=== PATIENT | male | born 1950 | race Caucasian/White ===

== ENCOUNTER 2020-07-02 09:24 | Day surgery (SDC) | payer MEDICARE, BC, OTHER ==
[~2020-07-02 09:24] MED LIST: Lactated Ringers 1,000 ML IV SCH
[2020-07-02] MEDS ORDERED: fentaNYL 100 MCG/2 ML SDV ONE (10:14)
[2020-07-02] MEDS ORDERED: Propofol 200 MG/20 ML SDV ONE ×3 (10:14→11:54)
[2020-07-02 12:27] VITALS: BP 131/73; PULSE 55
--- NOTE | 2020-07-03 19:06 | OR ---
DATE OF SURGERY: 07/02/2020. REFERRING PROVIDER: Tatiana Altamirano DO PREOPERATIVE DIAGNOSES: Screening colonoscopy. The patient's last colonoscopy was 01/2010. No known family history of colon cancer. POSTOPERATIVE DIAGNOSES: 1. 2 mm polyp at 80 cm removed with cold forceps. 2. Mild sigmoid diverticulosis with prominent kink noted between 20 and 30 cm from the anal verge. This required moving the patient onto his back and then on the right side to facilitate passage. Colon was fairly straight after that. 3. Mild hemorrhoids, not acutely inflamed. PROCEDURE: Colonoscopy with polypectomy x1 using cold forceps. SURGEON: Ang Brice M.D. ANESTHESIA: Monitored anesthesia care. BOWEL PREP: Good. Dell is a 69-year-old male who was brought to the endoscopy suite after discussing risks and benefits of the procedure. Informed consent was obtained for conscious sedation and colonoscopy with or without biopsy and/or polypectomy. We also discussed possibility of missed lesions. Pre-procedure exam was unremarkable. IV, oxygen, and monitors were placed. The patient was placed in the left lateral decubitus position. Sedation was administered and a digital rectal exam was performed and unremarkable. Colonoscope was passed into the rectum and slowly advanced all the way to the cecum. He did have prominent kink noted to the sigmoid colon, which was difficult to pass. This required moving the patient onto his back and then onto his right side. Cecum was eventually viewed and photographed. The colonoscope was slowly withdrawn and the mucosa was closed observed in a direct circumferential manner. The ascending colon was remarkable for 2 mm polyp at 80 cm removed with cold forceps. The transverse colon was unremarkable. The descending colon was unremarkable. The sigmoid colon was remarkable for mild diverticulosis, as well as the prominent kink and S-shaped curve. Retroflexion was performed, and rectal mucosa was remarkable for some mild hemorrhoids. Scope was removed. The patient tolerated the procedure well. The patient was monitored until that baseline status. Discharge instructions were reviewed and the patient was discharged in good condition. COMPLICATIONS: None. TOTAL TIME: 34 minutes. ESTIMATED BLOOD LOSS: Less than 1 mL. RECOMMENDATIONS/FOLLOW-UP: We will await results of path report to determine ideal followup interval. I would like to kindly thank Tatiana Altamirano for this referral. DMB: 07/02/2020 12:14:30 MODL: 07/02/2020 18:46:03 /[id number]
== END 2020-07-02 13:12 | disposition home or self-care (01) ==
LOC: VM.SDS 09:24
PROVIDERS: ATTEND Family Medicine
DX: Z12.11 Encounter for screening for malignant neoplasm of colon (principal); D12.2 Benign neoplasm of ascending colon; K57.30 Diverticulosis of large intestine without perforation or abscess without bleeding; K64.9 Unspecified hemorrhoids; E29.1 Testicular hypofunction; E23.0 Hypopituitarism; I48.0 Paroxysmal atrial fibrillation; Z86.010 Personal history of colon polyps; Z98.890 Other specified postprocedural states; Z01.812 Encounter for preprocedural laboratory examination; Z20.828 Contact with and (suspected) exposure to other viral communicable diseases; Z79.82 Long term (current) use of aspirin; Z88.5 Allergy status to narcotic agent
CPT/HCPCS: 00812; 45380; 88305; J2704; J3010; J7120; U0002

== ENCOUNTER 2021-08-12 11:12 | Emergency (ER) | payer MEDICARE, BC ==
[2021-08-12] MEDS ORDERED: Sodium Chloride 0.9% 10 ML Syringe FLUSH PRN (11:26)
[2021-08-12] MEDS ORDERED: Sodium Chloride 0.9% 500 ML IV ONE (11:33)
[2021-08-12 11:50] LABS: BARBITURATE SCREEN,URINE NEGATIVE (NEGATIVE); BENZODIAZEPINES SCREEN,URINE NEGATIVE (NEGATIVE); METHAMPHETAMINE SCREEN, URINE NEGATIVE (NEGATIVE); THC SCREEN,URINE 50 NG/ML POSITIVE (NEGATIVE)
[2021-08-12 11:51] LABS: BUPRENORPHINE SCREEN,URINE NEGATIVE (NEGATIVE)
--- NOTE | 2021-08-12 12:01 | CR ---
[id number] RAD/RAD Chest PA or AP 1V EXAM: FRONTAL CHEST INDICATION: NEAR SYNCOPE. COMPARISON: None. DISCUSSION: Calcified left hilar lymph nodes consistent with antecedent granulomatous disease. No acute infiltrates or effusions are identified. Normal heart size. IMPRESSION: 1. No acute findings. Preet Choi MD 08/12/21 1200 Thank you for allowing us to participate in the care of your patient.
[2021-08-12 12:11] LABS: CHLORIDE,CL 105 mmol/L (98-107); SODIUM,NA 139 mmol/L (136-145)
[2021-08-12 12:18] LABS: ANION GAP 12.9 mmol/L (5-15)
[2021-08-12 12:23] VITALS: BP 107/70; PULSE 56
--- NOTE | 2021-08-25 08:52 | EDM.PDOC ---
ED HPI GENERAL MEDICAL PROBLEM - General Chief Complaint: Cardiovascular Problem Stated Complaint: FAINT Time Seen by Provider: 08/12/21 11:16 Source of Information: Reports: Patient, Family History Limitations: Reports: No Limitations - History of Present Illness INITIAL COMMENTS - FREE TEXT/NARRATIVE: Pt. presents to ER with complaints of lightheadedness, diaphoresis, weakness and symptoms of near syncope. Pt. states that the symptoms only lasted for a few minutes. 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 Pt. denied any chest pain or shortness of breath. No headache. No numbness/tingling in extremities. No vision loss or change. Pt. denies any recent bloody stools. No hematemesis. No street drug use, other than marijuana. Pt. states that he did have a several hundred mile car trip the day before. He denies any recent trauma. Symptoms were completely resolved on arrival to ER. He states that he came to the emergency room very shortly after the symptoms started. Onset: Today Onset Date: 08/12/21 Location: Reports: Generalized Associated Symptoms: Reports: Diaphoresis, Weakness. Denies: Confusion, Chest Pain, Cough, Fever/Chills, Nausea/Vomiting, Rash, Seizure, Shortness of Breath, Syncope - Related Data Allergies Allergy/AdvReac Type Severity Reaction Status Date / Time codeine Allergy Abdominal Verified 08/12/21 12:12 Pain Home Meds: Home Meds Hydrocortisone [Cortef] 1.5 tab PO BID 11/18/15 [History] Levothyroxine Sodium 56 mcg PO DAILY 11/18/15 [History] Sildenafil [Viagra] 50 mg PO ASDIRECTED PRN 11/18/15 [History] Ibuprofen 200 - 600 mg PO Q4H PRN 03/26/20 [History] Scopolamine [Transderm-Scop] 1 patch TD Q3D 03/26/20 [History] Testosterone Cypionate 100 mg IM Q21D 03/26/20 [History] Past Medical History HEENT History: Reports: Other (See Below) Other HEENT History: chronic gingivitis Cardiovascular History: Reports: Afib Gastrointestinal History: Reports: Gastritis Genitourinary History: Reports: Other (See Below) Other Genitourinary History: ED Musculoskeletal History: Reports: Other (See Below) Other Musculoskeletal History: great toe fx. humerus distal fx. hamstring injury. right wrist fx. muscle cramps. hemangioma Neurological History: Reports: Vertigo Endocrine/Metabolic History: Reports: Other (See Below) Other Endocrine/Metabolic History: panhypopituitarism. pititary adenoma. hypogonadism. pituitary tumor resection - 1997 - Past Surgical History Male Surgical History: Reports: Vasectomy Endocrine Surgical History: Reports: Pituitary Tumor Resection Neurological Surgical History: Reports: Other (See Below) Other Neurological Surgeries/Procedures: BRAIN SURGERY Social & Family History - Tobacco Use Tobacco Use Status *Q: Unknown Ever Used Tobacco ED ROS GENERAL - Review of Systems Review Of Systems: See Below Constitutional: Reports: Weakness, Fatigue, Diaphoresis HEENT: Reports: No Symptoms Respiratory: Reports: No Symptoms Cardiovascular: Reports: Lightheadedness Endocrine: Reports: No Symptoms GI/Abdominal: Reports: No Symptoms : Reports: No Symptoms Musculoskeletal: Reports: No Symptoms Skin: Reports: No Symptoms Neurological: Reports: No Symptoms Psychiatric: Reports: No Symptoms Hematologic/Lymphatic: Reports: No Symptoms Immunologic: Reports: No Symptoms ED EXAM, GENERAL - Physical Exam Exam: See Below Exam Limited By: No Limitations General Appearance: Alert, WD/WN, No Apparent Distress Throat/Mouth: Normal Inspection, Normal Lips, Normal Teeth, Normal Gums, Normal Oropharynx, Normal Voice, No Airway Compromise Head: Atraumatic, Normocephalic Neck: Normal Inspection, Supple, Non-Tender, Full Range of Motion Respiratory/Chest: No Respiratory Distress, Lungs Clear, Normal Breath Sounds, No Accessory Muscle Use, Chest Non-Tender Cardiovascular: Normal Peripheral Pulses, Regular Rate, Rhythm, No Edema, No JVD, No Murmur GI/Abdominal: Normal Bowel Sounds, Soft, Non-Tender, No Organomegaly, No Distention, No Mass (Male) Exam: Deferred Rectal (Males) Exam: Deferred Back Exam: Normal Inspection, Full Range of Motion Extremities: Normal Inspection, Normal Range of Motion, Non-Tender, No Pedal Edema, Normal Capillary Refill Neurological: Alert, Oriented, CN II-XII Intact, Normal Cognition, Normal Gait, Normal Reflexes, No Motor/Sensory Deficits Psychiatric: Normal Affect, Normal Mood Skin Exam: Warm, Dry, Intact, Normal Color, No Rash Lymphatic: No Adenopathy #1 Interpretation Rhythm: NSR [place]: Normal P-Wave: Present QRS: Normal ST-T: Normal QT: Normal Course - Vital Signs Last Recorded V/S: Last Vital Signs Temp 36.2 C 08/12/21 11:13 Pulse 56 L 08/12/21 11:30 Resp 11 L 08/12/21 11:30 BP 107/70 08/12/21 11:30 Pulse Ox 97 08/12/21 11:30 - Orders/Labs/Meds Labs: Laboratory Tests 08/12/21 08/12/21 08/12/21 Range/Units 11:30 11:30 11:37 WBC 10.9 H (4.0-10.0) x10^3/uL RBC 5.07 (4.5-6.0) x10^6/uL Hgb 15.0 (14.0-18.0) g/dL Hct 44.3 (40.0-52.0) % MCV 87.4 (78.0-93.0) fL MCH 29.6 (26.0-32.0) pg MCHC 33.9 (32.0-36.0) g/dL RDW Coeff of Britney 14.2 (10.0-15.0) % Plt Count 254 (130-400) x10^3/uL Immature Gran % (Auto) 0.70 H (0.00-0.43) % Neut % (Auto) 57.1 (50.0-80.0) % Lymph % (Auto) 25.2 (25.0-50.0) % [place] % (Auto) 9.6 (2.0-11.0) % Eos % (Auto) 6.6 H (0.0-4.0) % Baso % (Auto) 0.8 (0.2-1.2) % Neut # (Auto) 6.2 (1.8-7.7) x10^3/uL Lymph # (Auto) 2.7 (1.0-4.8) x10^3/uL [place] # (Auto) 1.0 H (0.0-0.8) x10^3/uL Eos # (Auto) 0.7 H (0.0-0.5) x10^3/uL Baso # (Auto) 0.1 (0.0-0.2) x10^3/uL Immature Gran # (Auto) 0.08 H (0.00-0.07) x10^3/uL PT (9.9-12.5) SEC INR (2.0-3.5) Sodium (136-145) mmol/L Potassium (3.5-5.1) mmol/L Chloride (98-107) mmol/L Carbon Dioxide (21-32) mmol/L Anion Gap (5-15) mmol/L BUN (7-18) mg/dL Creatinine (0.70-1.30) mg/dL Est Cr Clr Drug Dosing Estimated GFR (MDRD) Glucose (70-99) mg/dL Calcium (8.5-10.1) mg/dL Corrected Calcium (8.5-10.1) mg/dL Phosphorus (2.6-4.7) mg/dL Magnesium (1.8-2.4) mg/dL Total Bilirubin (0.2-1.0) mg/dL AST (15-37) U/L ALT (16-63) U/L Alkaline Phosphatase (46-116) U/L Troponin I High Sens (<=76) ng/L C-Reactive Protein (<=0.9) mg/dL Total Protein (6.4-8.2) g/dL Albumin (3.4-5.0) g/dL Globulin Albumin/Globulin Ratio TSH, Ultra Sensitive (0.358-3.74) uIU/mL Urine Color Yellow (YELLOW) Urine Appearance Clear (CLEAR) Urine pH 5.5 (5.0-8.0) Ur Specific [employer] 1.025 Urine Protein 30 H (NEGATIVE) mg/dL Urine Glucose (UA) Negative (NEGATIVE) mg/dL Urine Ketones Negative (NEGATIVE) mg/dL Urine Occult Blood Negative (NEGATIVE) Urine Nitrite Negative (NEGATIVE) Urine Bilirubin Small H (NEGATIVE) Urine Urobilinogen 0.2 (0.2) EU/dL Ur Leukocyte Esterase Negative (NEGATIVE) Urine RBC 0-5 (NOT SEEN) /HPF Urine WBC 0-5 (NOT SEEN) /HPF Ur Squamous Epith Cells Rare (NOT SEEN) /HPF Urine Bacteria Rare (NOT SEEN) /HPF Urine Mucus Moderate H (NOT SEEN) /LPF Urine Opiates Screen Negative (NEGATIVE) Ur Buprenorphine Scrn Negative (NEGATIVE) Ur Oxycodone Screen Negative (NEGATIVE) Urine Methadone Screen Negative (NEGATIVE) Ur Barbiturates Screen Negative (NEGATIVE) Ur Phencyclidine Scrn Negative (NEGATIVE) Ur Amphetamine Screen Negative (NEGATIVE) U Methamphetamines Scrn Negative (NEGATIVE) Urine MDMA Screen Negative (NEGATIVE) U Benzodiazepines Scrn Negative (NEGATIVE) U Cocaine Metab Screen Negative (NEGATIVE) U Marijuana (THC) Screen Positive H (NEGATIVE) Ethyl Alcohol (0-3) mg/dL 08/12/21 08/12/21 Range/Units 11:37 11:37 WBC (4.0-10.0) x10^3/uL RBC (4.5-6.0) x10^6/uL Hgb (14.0-18.0) g/dL Hct (40.0-52.0) % MCV (78.0-93.0) fL MCH (26.0-32.0) pg MCHC (32.0-36.0) g/dL RDW Coeff of Britney (10.0-15.0) % Plt Count (130-400) x10^3/uL Immature Gran % (Auto) (0.00-0.43) % Neut % (Auto) (50.0-80.0) % Lymph % (Auto) (25.0-50.0) % [place] % (Auto) (2.0-11.0) % Eos % (Auto) (0.0-4.0) % Baso % (Auto) (0.2-1.2) % Neut # (Auto) (1.8-7.7) x10^3/uL Lymph # (Auto) (1.0-4.8) x10^3/uL [place] # (Auto) (0.0-0.8) x10^3/uL Eos # (Auto) (0.0-0.5) x10^3/uL Baso # (Auto) (0.0-0.2) x10^3/uL Immature Gran # (Auto) (0.00-0.07) x10^3/uL PT 11.0 (9.9-12.5) SEC INR 1.0 L (2.0-3.5) Sodium 139 (136-145) mmol/L Potassium 3.9 (3.5-5.1) mmol/L Chloride 105 (98-107) mmol/L Carbon Dioxide 25 (21-32) mmol/L Anion Gap 12.9 (5-15) mmol/L BUN 22 H (7-18) mg/dL Creatinine 1.2 (0.70-1.30) mg/dL Est Cr Clr Drug Dosing TNP Estimated GFR (MDRD) > 60 Glucose 115 H (70-99) mg/dL Calcium 8.0 L (8.5-10.1) mg/dL Corrected Calcium 8.2 L (8.5-10.1) mg/dL Phosphorus 4.1 (2.6-4.7) mg/dL Magnesium 2.0 (1.8-2.4) mg/dL Total Bilirubin 0.9 (0.2-1.0) mg/dL AST 19 (15-37) U/L ALT 18 (16-63) U/L Alkaline Phosphatase 27 L (46-116) U/L Troponin I High Sens 7 (<=76) ng/L C-Reactive Protein < 0.2 (<=0.9) mg/dL Total Protein 6.5 (6.4-8.2) g/dL Albumin 3.7 (3.4-5.0) g/dL Globulin 2.8 Albumin/Globulin Ratio 1.32 TSH, Ultra Sensitive 3.120 (0.358-3.74) uIU/mL Urine Color (YELLOW) Urine Appearance (CLEAR) Urine pH (5.0-8.0) Ur Specific [employer] Urine Protein (NEGATIVE) mg/dL Urine Glucose (UA) (NEGATIVE) mg/dL Urine Ketones (NEGATIVE) mg/dL Urine Occult Blood (NEGATIVE) Urine Nitrite (NEGATIVE) Urine Bilirubin (NEGATIVE) Urine Urobilinogen (0.2) EU/dL Ur Leukocyte Esterase (NEGATIVE) Urine RBC (NOT SEEN) /HPF Urine WBC (NOT SEEN) /HPF Ur Squamous Epith Cells (NOT SEEN) /HPF Urine Bacteria (NOT SEEN) /HPF Urine Mucus (NOT SEEN) /LPF Urine Opiates Screen (NEGATIVE) Ur Buprenorphine Scrn (NEGATIVE) Ur Oxycodone Screen (NEGATIVE) Urine Methadone Screen (NEGATIVE) Ur Barbiturates Screen (NEGATIVE) Ur Phencyclidine Scrn (NEGATIVE) Ur Amphetamine Screen (NEGATIVE) U Methamphetamines Scrn (NEGATIVE) Urine MDMA Screen (NEGATIVE) U Benzodiazepines Scrn (NEGATIVE) U Cocaine Metab Screen (NEGATIVE) U Marijuana (THC) Screen (NEGATIVE) Ethyl Alcohol < 3 (0-3) mg/dL Meds: Medications Discontinued Medications Generic Name Dose Route Start Last Admin Trade Name Alize PRN Reason Stop Dose Admin Sodium Chloride 500 mls @ 500 mls/hr 08/12/21 11:33 08/12/21 11:20 Normal Saline IV 08/12/21 12:32 500 mls/hr ONETIME ONE Administration Sodium Chloride 10 ml 08/12/21 11:26 Sodium Chloride 0.9% 10 Ml Syringe FLUSH ASDIRECTED PRN Keep Vein Open Departure - Departure Time of Disposition: 14:00 Disposition: Home, Self-Care 01 Condition: Good Clinical Impression: Near syncope - Discharge Information Instructions: Near-Syncope, [id number] Referrals: Tatiana Altamirano, [Primary Care Provider] - Forms: ED Department Discharge Additional Instructions: Your chest x-ray, labs, and EKG were all normal. I do, however, suggest following up with your PCP for some further testing, specifically a Holter study and stress test. Return to ER if you have chest pain, shortness of breath, feel faint, or pass out. Call if you have any questions. - Problem List Review Problem List Initiated/Reviewed/Updated: Yes - Assessment/Plan Plan: Your chest x-ray, labs, and EKG were all normal. I do, however, suggest following up with your PCP for some further testing, specifically a Holter study and stress test. Return to ER if you have chest pain, shortness of breath, feel faint, or pass out. Call if you have any questions.
== END 2021-08-12 11:16 | disposition home or self-care (01) ==
LOC: VM.ED 11:12
DX: R55 Syncope and collapse (principal); I48.91 Unspecified atrial fibrillation; Z79.899 Other long term (current) drug therapy; Z88.5 Allergy status to narcotic agent
CPT/HCPCS: 36415; 71045; 80053; 80305; 80307; 81001; 83735; 84100; 84443; 84484; 85025; 85610; 86140; 93005; 93010; 99284; 99285; J7030

== ENCOUNTER 2021-09-23 23:37 | Emergency (ER) | payer MEDICARE, BC ==
[2021-09-23] MEDS ORDERED: Sodium Chloride 0.9% 10 ML Syringe FLUSH PRN (23:54)
[2021-09-23] MEDS: Sodium Chloride 0.9% 1,000 ML IV ONE (23:55)
[2021-09-24] MEDS: Diltiazem 50 MG/10 ML SDV IVPUSH ONE
--- NOTE | 2021-09-24 00:04 | EDM.PDOC ---
ED HPI GENERAL MEDICAL PROBLEM - General Chief Complaint: Chest Pain Stated Complaint: irregular heart rate Time Seen by Provider: 09/23/21 23:40 Source of Information: Reports: Patient History Limitations: Reports: No Limitations - History of Present Illness INITIAL COMMENTS - FREE TEXT/NARRATIVE: Patient comes into the emergency department with complaints of irregular heartbeat and a fast heart rate. Patient states that he started noticing this approximately 2 hours prior to the emergency room department. He states that he was just sitting and he could feel his heart rate was irregular and started to speed up. It made him concerned and nervous and presented to the emergency department for further evaluation. Patient denies ever having this type of feeling prior to this. Patient denies any chest pain, shortness of breath, dizziness, lightheadedness, blurred vision, peripheral edema, or genitourinary concerns. Patient describes the discomfort as a weird feeling. Onset: Sudden Quality: Reports: Other Severity: Moderate Improves with: Reports: None Worsens with: Reports: None Context: Reports: Other Associated Symptoms: Reports: No Other Symptoms - Related Data Allergies Allergy/AdvReac Type Severity Reaction Status Date / Time codeine Allergy Abdominal Verified 08/12/21 12:12 Pain Home Meds: Home Meds Hydrocortisone [Cortef] 1.5 tab PO BID 11/18/15 [History] Levothyroxine Sodium 56 mcg PO DAILY 11/18/15 [History] Sildenafil [Viagra] 50 mg PO ASDIRECTED PRN 11/18/15 [History] Ibuprofen 200 - 600 mg PO Q4H PRN 03/26/20 [History] Scopolamine [Transderm-Scop] 1 patch TD Q3D 03/26/20 [History] Testosterone Cypionate 100 mg IM Q21D 03/26/20 [History] Past Medical History HEENT History: Reports: Other (See Below) Other HEENT History: chronic gingivitis Cardiovascular History: Reports: Afib Gastrointestinal History: Reports: Gastritis Genitourinary History: Reports: Other (See Below) Other Genitourinary History: ED Musculoskeletal History: Reports: Other (See Below) Other Musculoskeletal History: great toe fx. humerus distal fx. hamstring injury. right wrist fx. muscle cramps. hemangioma Neurological History: Reports: Vertigo Endocrine/Metabolic History: Reports: Other (See Below) Other Endocrine/Metabolic History: panhypopituitarism. pititary adenoma. hypogonadism. pituitary tumor resection - 1997 - Past Surgical History Male Surgical History: Reports: Vasectomy Endocrine Surgical History: Reports: Pituitary Tumor Resection Neurological Surgical History: Reports: Other (See Below) Other Neurological Surgeries/Procedures: BRAIN SURGERY ED ROS GENERAL - Review of Systems Review Of Systems: Comprehensive ROS is negative, except as noted in HPI. Constitutional: Reports: No Symptoms HEENT: Reports: No Symptoms Respiratory: Reports: No Symptoms Cardiovascular: Reports: Palpitations Endocrine: Reports: No Symptoms GI/Abdominal: Reports: No Symptoms : Reports: No Symptoms Musculoskeletal: Reports: No Symptoms Skin: Reports: No Symptoms Neurological: Reports: No Symptoms Psychiatric: Reports: No Symptoms Hematologic/Lymphatic: Reports: No Symptoms Immunologic: Reports: No Symptoms ED EXAM, GENERAL - Physical Exam Exam: See Below Exam Limited By: No Limitations General Appearance: Alert, WD/WN, No Apparent Distress Nose: Normal Inspection, Normal Mucosa, No Blood Head: Atraumatic, Normocephalic Neck: Normal Inspection, Supple, Non-Tender, Full Range of Motion Respiratory/Chest: No Respiratory Distress, Lungs Clear, Normal Breath Sounds, No Accessory Muscle Use, Chest Non-Tender Cardiovascular: Normal Peripheral Pulses, Regular Rate, Rhythm GI/Abdominal: Normal Bowel Sounds, Soft, Non-Tender Back Exam: Normal Inspection, Full Range of Motion Extremities: Normal Inspection, Normal Range of Motion, Non-Tender, No Pedal Edema, Normal Capillary Refill Neurological: Alert, Oriented, Normal Cognition Psychiatric: Normal Affect, Normal Mood Skin Exam: Warm, Dry, Intact, Normal Color #2 Interpretation EKG Date: 09/24/21 Time: 00:28 Rhythm: A-Fib Rate (Beats/Min): 104 [place]: Normal QRS: Normal ST-T: Normal QT: Normal Comparison: Change From Previous EKG #1 Interpretation EKG Date: 09/23/21 Time: 23:40 Rate (Beats/Min): 149 QRS: Normal QT: Normal Comparison: NA - No Prior EKG Course - Vital Signs Last Recorded V/S: Last Vital Signs Temp 36.6 C 09/23/21 23:40 Pulse 156 H 09/23/21 23:40 Resp 17 09/23/21 23:40 BP 121/96 H 09/23/21 23:40 Pulse Ox 96 09/23/21 23:40 - Orders/Labs/Meds Orders: Active Orders 24 hr Category Date Time Status EKG Documentation Completion [RC] STAT Care 09/23/21 23:54 Active EKG Documentation Completion [RC] STAT Care 09/24/21 00:27 Active Chest 1V Frontal [CR] Stat Exams 09/23/21 23:55 Ordered FREE T3 [REF] Stat Lab 09/24/21 00:03 Received THYROXINE (T4) [REF] Stat Lab 09/24/21 00:03 Received TOTAL T3 [REF] Stat Lab 09/24/21 00:03 Received Sodium Chloride 0.9% [Normal Saline] 1,000 ml Med 09/24/21 00:31 Active IV ONETIME Sodium Chloride 0.9% [Saline Flush] Med 09/23/21 23:54 Active 10 ml FLUSH ASDIRECTED PRN Peripheral IV Insertion Adult [OM.PC] Stat Oth 09/23/21 23:54 Ordered Medication Orders Sodium Chloride (Normal Saline) 1,000 mls @ 1,000 mls/hr IV ONETIME ONE Stop: 09/24/21 01:30 Sodium Chloride (Sodium Chloride 0.9% 10 Ml Syringe) 10 ml FLUSH ASDIRECTED PRN PRN Reason: Keep Vein Open Labs: Laboratory Tests 09/23/21 09/23/21 09/23/21 Range/Units 23:55 23:55 23:55 WBC 9.6 (4.0-10.0) x10^3/uL RBC 4.82 (4.5-6.0) x10^6/uL Hgb 14.3 (14.0-18.0) g/dL Hct 41.8 (40.0-52.0) % MCV 86.7 (78.0-93.0) fL MCH 29.7 (26.0-32.0) pg MCHC 34.2 (32.0-36.0) g/dL RDW Coeff of Britney 13.5 (10.0-15.0) % Plt Count 245 (130-400) x10^3/uL Immature Gran % (Auto) 0.30 (0.00-0.43) % Neut % (Auto) 64.1 (50.0-80.0) % Lymph % (Auto) 22.2 L (25.0-50.0) % [place] % (Auto) 7.1 (2.0-11.0) % Eos % (Auto) 5.7 H (0.0-4.0) % Baso % (Auto) 0.6 (0.2-1.2) % Neut # (Auto) 6.1 (1.8-7.7) x10^3/uL Lymph # (Auto) 2.1 (1.0-4.8) x10^3/uL [place] # (Auto) 0.7 (0.0-0.8) x10^3/uL Eos # (Auto) 0.6 H (0.0-0.5) x10^3/uL Baso # (Auto) 0.1 (0.0-0.2) x10^3/uL Immature Gran # (Auto) 0.03 (0.00-0.07) x10^3/uL PT 10.2 (9.9-12.5) SEC INR 0.9 L (2.0-3.5) Sodium 143 (136-145) mmol/L Potassium 4.0 (3.5-5.1) mmol/L Chloride 107 (98-107) mmol/L Carbon Dioxide 26 (21-32) mmol/L Anion Gap 14.0 (5-15) mmol/L BUN 32 H (7-18) mg/dL Creatinine 1.4 H (0.70-1.30) mg/dL Est Cr Clr Drug Dosing 60.36 mL/min Estimated GFR (MDRD) 50 Glucose 204 H (70-99) mg/dL Calcium 8.5 (8.5-10.1) mg/dL Corrected Calcium 8.6 (8.5-10.1) mg/dL Total Bilirubin 0.2 (0.2-1.0) mg/dL AST 15 (15-37) U/L ALT 24 (16-63) U/L Alkaline Phosphatase 40 L (46-116) U/L Troponin I High Sens 6 (<=76) ng/L Total Protein 6.9 (6.4-8.2) g/dL Albumin 3.9 (3.4-5.0) g/dL Globulin 3.0 Albumin/Globulin Ratio 1.30 TSH, Ultra Sensitive (0.358-3.74) uIU/mL 09/23/21 Range/Units 23:55 WBC (4.0-10.0) x10^3/uL RBC (4.5-6.0) x10^6/uL Hgb (14.0-18.0) g/dL Hct (40.0-52.0) % MCV (78.0-93.0) fL MCH (26.0-32.0) pg MCHC (32.0-36.0) g/dL RDW Coeff of Britney (10.0-15.0) % Plt Count (130-400) x10^3/uL Immature Gran % (Auto) (0.00-0.43) % Neut % (Auto) (50.0-80.0) % Lymph % (Auto) (25.0-50.0) % [place] % (Auto) (2.0-11.0) % Eos % (Auto) (0.0-4.0) % Baso % (Auto) (0.2-1.2) % Neut # (Auto) (1.8-7.7) x10^3/uL Lymph # (Auto) (1.0-4.8) x10^3/uL [place] # (Auto) (0.0-0.8) x10^3/uL Eos # (Auto) (0.0-0.5) x10^3/uL Baso # (Auto) (0.0-0.2) x10^3/uL Immature Gran # (Auto) (0.00-0.07) x10^3/uL PT (9.9-12.5) SEC INR (2.0-3.5) Sodium (136-145) mmol/L Potassium (3.5-5.1) mmol/L Chloride (98-107) mmol/L Carbon Dioxide (21-32) mmol/L Anion Gap (5-15) mmol/L BUN (7-18) mg/dL Creatinine (0.70-1.30) mg/dL Est Cr Clr Drug Dosing mL/min Estimated GFR (MDRD) Glucose (70-99) mg/dL Calcium (8.5-10.1) mg/dL Corrected Calcium (8.5-10.1) mg/dL Total Bilirubin (0.2-1.0) mg/dL AST (15-37) U/L ALT (16-63) U/L Alkaline Phosphatase (46-116) U/L Troponin I High Sens (<=76) ng/L Total Protein (6.4-8.2) g/dL Albumin (3.4-5.0) g/dL Globulin Albumin/Globulin Ratio TSH, Ultra Sensitive 0.158 L (0.358-3.74) uIU/mL Meds: Medications Generic Name Dose Route Start Last Admin Trade Name Freq PRN Reason Stop Dose Admin Sodium Chloride 1,000 mls @ 1,000 mls/hr 09/24/21 00:31 Normal Saline IV 09/24/21 01:30 ONETIME ONE Sodium Chloride 10 ml 09/23/21 23:54 Sodium Chloride 0.9% 10 Ml Syringe FLUSH ASDIRECTED PRN Keep Vein Open Discontinued Medications Generic Name Dose Route Start Last Admin Trade Name Freq PRN Reason Stop Dose Admin Aspirin 324 mg 09/23/21 23:57 09/24/21 00:23 Aspirin 81 Mg Tab.Chew PO 09/23/21 23:58 324 mg ONETIME ONE Administration Diltiazem HCl 20 mg 09/23/21 23:56 09/24/21 00:00 Diltiazem 50 Mg/10 Ml Sdv IVPUSH 09/23/21 23:57 20 mg ONETIME ONE Administration Metoprolol Tartrate 5 mg 09/24/21 00:46 Metoprolol Tartrate 5 Mg/5 Ml Sdv IVPUSH 09/24/21 00:47 ONETIME ONE Departure - Departure Time of Disposition: 01:10 Disposition: Home, Self-Care 01 Condition: Good Clinical Impression: Atrial fibrillation Qualifiers: Atrial fibrillation type: unspecified Qualified Code(s): I48.91 - Unspecified atrial fibrillation - Discharge Information *PRESCRIPTION DRUG MONITORING PROGRAM REVIEWED*: Not Applicable *COPY OF PRESCRIPTION DRUG MONITORING REPORT IN PATIENT ASHIA: Not Applicable Instructions: Atrial Fibrillation, [id number] Forms: ED Department Discharge Additional Instructions: 1. rest 2. increase your water intake 3. Continue all at home medications 4. Activity and diet as tolerated 5. Can take over the counter Tylenol for any pain or discomfort 6. Follow up with PCP if symptoms continue, return, or progress 7. Call with any questions or concerns 8. Call endocrinology in the am and Cardiology to schedule appointment Sepsis Event Note (ED) - Focused Exam Vital Signs: Vital Signs Temp Pulse Resp BP Pulse Ox 09/23/21 23:40 36.6 C 156 H 17 121/96 H 96 - My Orders Last 24 Hours: My Active Orders 09/23/21 23:54 EKG Documentation Completion [RC] STAT Sodium Chloride 0.9% [Saline Flush] 10 ml FLUSH ASDIRECTED PRN Peripheral IV Insertion Adult [OM.PC] Stat 09/23/21 23:55 Chest 1V Frontal [CR] Stat 09/24/21 00:03 FREE T3 [REF] Stat THYROXINE (T4) [REF] Stat TOTAL T3 [REF] Stat 09/24/21 00:27 EKG Documentation Completion [RC] STAT 09/24/21 00:31 Sodium Chloride 0.9% [Normal Saline] 1,000 ml IV ONETIME - Assessment/Plan Last 24 Hours: My Active Orders 09/23/21 23:54 EKG Documentation Completion [RC] STAT Sodium Chloride 0.9% [Saline Flush] 10 ml FLUSH ASDIRECTED PRN Peripheral IV Insertion Adult [OM.PC] Stat 09/23/21 23:55 Chest 1V Frontal [CR] Stat 09/24/21 00:03 FREE T3 [REF] Stat THYROXINE (T4) [REF] Stat TOTAL T3 [REF] Stat 09/24/21 00:27 EKG Documentation Completion [RC] STAT 09/24/21 00:31 Sodium Chloride 0.9% [Normal Saline] 1,000 ml IV ONETIME Assessment:: 1. New onset of Atrial Fib Plan: 1. Labs completed in the ER. Results reviewed with the patient 2. IV initiated in the emergency department 3. IV fluids provided 4. Chest xray completed in ER. Results reviewed with the patient 5. ASA 324mg chewable was given to the patient 6. EKG was completed in ER. Results reviewed with the patient 7. Patient and nursing staff was updated regarding the plan of care 8. Cardizem IV given which slowed the patients rate 9. Consultation completed with [facility] Dr. Capps who suggest conservative measure of the above that has been completed and given an ER dose of Metoprolol and sending him home on BID doses. He recommends out patient follow up with cardiology and follow up with Endocrinology to have mediation reduced right away. 10. Education provided the patient regarding activity, diet, rest, [id number] medication modalities, and follow-up care was provided 11. Patient and family are agreeable to the above plan of care 12. All questions and concerns were addressed with the patient and family prior to discharge
[2021-09-24] MEDS: Aspirin 81 MG Tab.Chew PO ONE (00:23)
[2021-09-24] MEDS: Metoprolol Tartrate 5 MG/5 ML SDV IVPUSH ONE (00:55)
[2021-09-24 01:29] VITALS: BP 106/80; PULSE 86
--- NOTE | 2021-09-24 07:48 | CR ---
[id number] RAD/RAD Chest Portable EXAM: PORTABLE CHEST RADIOGRAPH. INDICATION: TACHYCARDIA COMPARISON: CORRELATION IS MADE WITH AUGUST 12, 2021 FINDINGS: The lungs are clear. The cardiomediastinal contour is mildly prominent but stable Calcified hilar nodes are seen. The regional bones and soft tissues are unremarkable. There is no pneumothorax. IMPRESSION: NO ACUTE PROCESS. Louie Piper MD 09/24/21 [id number] Thank you for allowing us to participate in the care of your patient.
== END 2021-09-24 01:29 | disposition home or self-care (01) ==
LOC: VM.ED 23:37
DX: I48.91 Unspecified atrial fibrillation (principal); Z88.5 Allergy status to narcotic agent; Z79.899 Other long term (current) drug therapy
CPT/HCPCS: 71045; 80053; 84436; 84443; 84480; 84481; 84484; 85025; 85610; 93005; 96374; 96375; 99285; A9270; J3490; J7030; 93010; 99284

== ENCOUNTER 2022-01-23 14:42 | Emergency (ER) | payer MEDICARE, BC ==
[2022-01-23] MEDS ORDERED: Ondansetron 4 MG/2 ML SDV IVPUSH ONE ×2 (15:09→16:14)
[2022-01-23] MEDS ORDERED: Sodium Chloride 0.9% 10 ML Syringe FLUSH PRN (15:09)
[2022-01-23] MEDS ORDERED: Sodium Chloride 0.9% 1,000 ML IV ONE ×2 (15:09→16:14)
[2022-01-23] MEDS ORDERED: Hydrocortisone Sodium Succinate 100 MG/2 ML SDV IVPUSH ONE (15:19)
[2022-01-23 16:01] LABS: CHLORIDE,CL 97 mmol/L (98-107); SODIUM,NA 131 mmol/L (136-145)
[2022-01-23 16:06] LABS: ANION GAP 12.5 mmol/L (5-15)
[2022-01-23] MEDS ORDERED: Take Home: Ondansetron 4 MG Tab.DIS, 5 Tab Pack PO ONE (16:14)
[2022-01-23 17:22] VITALS: BP 122/78; PULSE 88
== END 2022-01-23 17:14 | disposition home or self-care (01) ==
LOC: VM.ED 14:42
DX: R11.2 Nausea with vomiting, unspecified (principal); R19.7 Diarrhea, unspecified; E27.40 Unspecified adrenocortical insufficiency; I48.91 Unspecified atrial fibrillation; Z88.5 Allergy status to narcotic agent; Z79.899 Other long term (current) drug therapy
CPT/HCPCS: 36415; 80053; 81001; 83605; 83690; 85025; 86140; 96374; 96375; 96376; 99284; 99284-25; J1720; J2405; J7030; Q0162

== ENCOUNTER 2023-10-13 09:30 | Inpatient (IN) | payer MEDICARE, BC ==
[2023-10-13] MEDS ORDERED: Ondansetron 4 MG/2 ML SDV IVPUSH ONE (09:31)
[2023-10-13] MEDS ORDERED: Pantoprazole 40 MG Vial IVPUSH ONE (09:41)
[2023-10-13] MEDS ORDERED: Hydrocortisone Sodium Succinate 100 MG/2 ML SDV IVPUSH ONE (09:42)
[2023-10-13] MEDS ORDERED: Sodium Chloride 0.9% 1,000 ML IV SCH (09:45)
[2023-10-13 09:47] LABS: BASOPHILS PERCENT AUTO 0.1 % (0.2-1.2); HEMATOCRIT 37.9 % (40.0-52.0); HEMOGLOBIN 12.9 g/dL (14.0-18.0); IMMATURE GRAN ABSOLUTE AUTO 0.02 x10^3/uL (0.00-0.07); LYMPHOCYTES ABSOLUTE AUTO 1.1 x10^3/uL (1.0-4.8); LYMPHOCYTES PERCENT AUTO 15.3 % (25.0-50.0); MEAN CORPUSCULAR HEMOGLOBIN 28.7 pg (26.0-32.0); MEAN CORPUSCULAR VOLUME 84.2 fL (78.0-93.0); MONOCYTES ABSOLUTE AUTO 0.8 x10^3/uL (0.0-0.8); MONOCYTES PERCENT AUTO 10.8 % (2.0-11.0); NEUTROPHILS ABSOLUTE AUTO 5.4 x10^3/uL (1.8-7.7); NEUTROPHILS PERCENT AUTO 73.5 % (50.0-80.0); PLATELET COUNT,PLT 186 x10^3/uL (130-400); WHITE BLOOD CELL COUNT,WBC 7.4 x10^3/uL (4.0-10.0)
[2023-10-13 10:04] LABS: A/G RATIO 0.93; ALANINE AMINOTRANSFERASE,ALT 29 U/L (16-63); ALBUMIN 3.8 g/dL (3.4-5.0); ALKALINE PHOSPHATASE 41 U/L (46-116); ANION GAP 19.1 mmol/L (5-15); ASPARTATE AMNIOTRANSFERASE,AST 23 U/L (15-37); BILIRUBIN TOTAL 0.7 mg/dL (0.2-1.0); BLOOD UREA NITROGEN,BUN 29 mg/dL (7-18); CALCIUM 9.1 mg/dL (8.5-10.1); CARBON DIOXIDE,CO2 23 mmol/L (21-32); CHLORIDE,CL 97 mmol/L (98-107); CREATININE 1.1 mg/dL (0.70-1.30); ESTIMATED GFR 72 mL/min (>=60); GLUCOSE RANDOM 140 mg/dL (70-99); MAGNESIUM 1.8 mg/dL (1.8-2.4); POTASSIUM,K 4.1 mmol/L (3.5-5.1); PROTEIN TOTAL,TP 7.9 g/dL (6.4-8.2); PTT,PARTIAL THROMBOPLSTIN TIME 28.2 SEC (23.6-33.6); SODIUM,NA 135 mmol/L (136-145)
[2023-10-13] MEDS ORDERED: Metoclopramide 10 MG/2 ML SDV IVPUSH ONE (10:12)
[2023-10-13] MEDS ORDERED: HYDROmorphone 0.5 MG/0.5 ML Syringe IVPUSH ONE (10:13)
[2023-10-13 10:16] LABS: LACTIC ACID 2.6 mmol/L (0.4-2.0)
[2023-10-13] MEDS ORDERED: Iopamidol 612 MG/ML 100 ML Bottle IVPUSH ONE (10:18)
[2023-10-13 10:29] LABS: CORONAVIRUS COVID-19 NAA POSITIVE (NEGATIVE); INFLUENZA A NAA NEGATIVE (NEGATIVE); INFLUENZA B NAA NEGATIVE (NEGATIVE); RESPIRATORY SYNCYTIAL VIR NAA NEGATIVE (NEGATIVE)
[2023-10-13] MEDS ORDERED: Piperacillin/Tazobactam 3.375 GM in Sodium Chloride 0.9% 100 ML IV ONE (12:03)
[2023-10-13 14:56] LABS: HEMATOCRIT 42.3 % (40.0-52.0); HEMOGLOBIN 14.2 g/dL (14.0-18.0)
[2023-10-13 15:01] LABS: BILIRUBIN,URINE NEGATIVE (NEGATIVE); COLOR,URINE YELLOW (YELLOW); GLUCOSE,URINE NEGATIVE (NEGATIVE); KETONES,URINE 15 mg/dL (NEGATIVE); LEUKOCYTE ESTERASE,URINE NEGATIVE (NEGATIVE); NITRITE,URINE NEGATIVE (NEGATIVE); OCCULT BLOOD,URINE SMALL (NEGATIVE); PROTEIN,URINE 30 mg/dL (NEGATIVE); UROBILINOGEN,URINE 0.2 EU/dL (0.2)
[2023-10-13 15:02] LABS: APPEARANCE,URINE SLIGHTLY CLOUDY (CLEAR)
[2023-10-13 15:07] LABS: SQUAMOUS EPITHELIAL CELLS,UR NOT SEEN /HPF (NOT SEEN); WBC,URINE 0-5 /HPF (NOT SEEN)
[2023-10-13 15:08] LABS: BACTERIA,URINE RARE /HPF (NOT SEEN); MUCUS,URINE OCCASIONAL /LPF (NOT SEEN)
[2023-10-13] MEDS: Sucralfate 1 GM Tab PO SCH (16:38)
[2023-10-13] MEDS: Pantoprazole 40 MG Vial IVPUSH SCH (18:03)
[2023-10-13] MEDS: Hydrocortisone Sodium Succinate 100 MG/2 ML SDV IVPUSH SCH (18:07)
[2023-10-13] MEDS: HYDROmorphone 0.5 MG/0.5 ML Syringe IVPUSH PRN (18:10)
[2023-10-13] MEDS: Ondansetron 4 MG/2 ML SDV IV PRN (18:12)
[2023-10-14] MEDS: Piperacillin/Tazobactam 3.375 GM in Sodium Chloride 0.9% 100 ML IV SCH ×4 (00:07→22:40)
[2023-10-14] MEDS: HYDROmorphone 0.5 MG/0.5 ML Syringe IVPUSH PRN ×6 (00:19→22:36)
[2023-10-14] MEDS: Sodium Chloride 0.9% 10 ML Syringe FLUSH PRN ×2 (05:51→12:25)
[2023-10-14] MEDS: Hydrocortisone Sodium Succinate 100 MG/2 ML SDV IVPUSH SCH ×2 (05:55→18:41)
[2023-10-14] MEDS: Pantoprazole 40 MG Vial IVPUSH SCH ×2 (05:59→18:36)
[2023-10-14] MEDS: Sucralfate 1 GM Tab PO SCH ×3 (06:17→18:36)
[2023-10-14] MEDS: Ondansetron 4 MG/2 ML SDV IV PRN ×3 (06:21→18:44)
[2023-10-14 08:46] LABS: BASOPHILS PERCENT AUTO 0.1 % (0.2-1.2); CALCIUM 8.3 mg/dL (8.5-10.1); EOSINOPHILS PERCENT AUTO 0.1 % (0.0-4.0); EST CRCL DRUG DOSING (CG) 83.27 mL/min; HEMATOCRIT 44.4 % (40.0-52.0); HEMOGLOBIN 15.1 g/dL (14.0-18.0); IMMATURE GRAN ABSOLUTE AUTO 0.02 x10^3/uL (0.00-0.07); LYMPHOCYTES ABSOLUTE AUTO 1.9 x10^3/uL (1.0-4.8); LYMPHOCYTES PERCENT AUTO 13.3 % (25.0-50.0); MEAN CORPUSCULAR HEMOGLOBIN 28.7 pg (26.0-32.0); MEAN CORPUSCULAR VOLUME 84.4 fL (78.0-93.0); MONOCYTES PERCENT AUTO 7.5 % (2.0-11.0); NEUTROPHILS PERCENT AUTO 78.9 % (50.0-80.0); PLATELET COUNT,PLT 205 x10^3/uL (130-400); POTASSIUM,K 4.1 mmol/L (3.5-5.1); RED BLOOD CELL COUNT 5.26 x10^6/uL (4.5-6.0)
[2023-10-14 08:51] LABS: ANION GAP 14.1 mmol/L (5-15)
[2023-10-14] MEDS ORDERED: HYDROCORTISONE 10 MG PO SCH (09:00)
[2023-10-14] MEDS: Levothyroxine 112 MCG Tab PO SCH (09:09)
[2023-10-15] MEDS: Sodium Chloride 0.9% 10 ML Syringe FLUSH PRN (03:10)
[2023-10-15] MEDS: HYDROmorphone 0.5 MG/0.5 ML Syringe IVPUSH PRN ×6 (03:13→21:27)
[2023-10-15] MEDS: Hydrocortisone Sodium Succinate 100 MG/2 ML SDV IVPUSH SCH ×2 (06:00→18:04)
[2023-10-15] MEDS: Pantoprazole 40 MG Vial IVPUSH SCH ×2 (06:04→17:56)
[2023-10-15] MEDS: Piperacillin/Tazobactam 3.375 GM in Sodium Chloride 0.9% 100 ML IV SCH ×3 (06:10→21:31)
[2023-10-15] MEDS: Sucralfate 1 GM Tab PO SCH ×3 (06:19→17:51)
[2023-10-15 08:25] LABS: BASOPHILS PERCENT AUTO 0.1 % (0.2-1.2); EOSINOPHILS PERCENT AUTO 0.1 % (0.0-4.0); HEMATOCRIT 42.3 % (40.0-52.0); HEMOGLOBIN 14.3 g/dL (14.0-18.0); IMMATURE GRAN ABSOLUTE AUTO 0.02 x10^3/uL (0.00-0.07); LYMPHOCYTES ABSOLUTE AUTO 1.8 x10^3/uL (1.0-4.8); LYMPHOCYTES PERCENT AUTO 16.5 % (25.0-50.0); MEAN CORPUSCULAR HEMOGLOBIN 28.5 pg (26.0-32.0); MEAN CORPUSCULAR HGB CONC 33.8 g/dL (32.0-36.0); MEAN CORPUSCULAR VOLUME 84.3 fL (78.0-93.0); MONOCYTES ABSOLUTE AUTO 0.9 x10^3/uL (0.0-0.8); MONOCYTES PERCENT AUTO 8.2 % (2.0-11.0); NEUTROPHILS ABSOLUTE AUTO 8.1 x10^3/uL (1.8-7.7); NEUTROPHILS PERCENT AUTO 74.9 % (50.0-80.0); PLATELET COUNT,PLT 211 x10^3/uL (130-400); RED BLOOD CELL COUNT 5.02 x10^6/uL (4.5-6.0); WHITE BLOOD CELL COUNT,WBC 10.8 x10^3/uL (4.0-10.0)
[2023-10-15 08:50] LABS: A/G RATIO 0.89; ALBUMIN 3.1 g/dL (3.4-5.0); BILIRUBIN TOTAL 0.8 mg/dL (0.2-1.0); CALCIUM 8.2 mg/dL (8.5-10.1); CREATININE 0.9 mg/dL (0.70-1.30); EST CRCL DRUG DOSING (CG) 92.52 mL/min; POTASSIUM,K 3.9 mmol/L (3.5-5.1); PROTEIN TOTAL,TP 6.6 g/dL (6.4-8.2)
[2023-10-15 08:51] LABS: ANION GAP 12.9 mmol/L (5-15)
[2023-10-15] MEDS: Levothyroxine 112 MCG Tab PO SCH (09:53)
[2023-10-15] MEDS: Ondansetron 4 MG/2 ML SDV IV PRN (18:00)
[2023-10-16] MEDS: HYDROmorphone 0.5 MG/0.5 ML Syringe IVPUSH PRN (04:52)
[2023-10-16] MEDS: Sodium Chloride 0.9% 10 ML Syringe FLUSH PRN ×2 (04:57→21:46)
[2023-10-16] MEDS: Piperacillin/Tazobactam 3.375 GM in Sodium Chloride 0.9% 100 ML IV SCH (06:35)
[2023-10-16] MEDS: Hydrocortisone Sodium Succinate 100 MG/2 ML SDV IVPUSH SCH (06:37)
[2023-10-16] MEDS: Pantoprazole 40 MG Vial IVPUSH SCH ×2 (06:41→17:45)
[2023-10-16] MEDS: Sucralfate 1 GM Tab PO SCH ×3 (06:48→17:45)
[2023-10-16 07:15] LABS: BASOPHILS PERCENT AUTO 0.2 % (0.2-1.2); EOSINOPHILS PERCENT AUTO 0.3 % (0.0-4.0); HEMATOCRIT 40.5 % (40.0-52.0); HEMOGLOBIN 14.2 g/dL (14.0-18.0); IMMATURE GRAN ABSOLUTE AUTO 0.02 x10^3/uL (0.00-0.07); LYMPHOCYTES ABSOLUTE AUTO 3.1 x10^3/uL (1.0-4.8); LYMPHOCYTES PERCENT AUTO 30.5 % (25.0-50.0); MEAN CORPUSCULAR HEMOGLOBIN 29.2 pg (26.0-32.0); MEAN CORPUSCULAR HGB CONC 35.1 g/dL (32.0-36.0); MEAN CORPUSCULAR VOLUME 83.3 fL (78.0-93.0); MONOCYTES ABSOLUTE AUTO 1.5 x10^3/uL (0.0-0.8); NEUTROPHILS ABSOLUTE AUTO 5.5 x10^3/uL (1.8-7.7); PLATELET COUNT,PLT 196 x10^3/uL (130-400); RED BLOOD CELL COUNT 4.86 x10^6/uL (4.5-6.0); WHITE BLOOD CELL COUNT,WBC 10.2 x10^3/uL (4.0-10.0)
[2023-10-16 07:34] LABS: A/G RATIO 0.91; BILIRUBIN TOTAL 0.7 mg/dL (0.2-1.0); CALCIUM 8.2 mg/dL (8.5-10.1); EST CRCL DRUG DOSING (CG) 83.27 mL/min; POTASSIUM,K 3.6 mmol/L (3.5-5.1); PROTEIN TOTAL,TP 6.3 g/dL (6.4-8.2)
[2023-10-16 07:35] LABS: ANION GAP 10.6 mmol/L (5-15)
[2023-10-16 07:41] LABS: MONOCYTES PERCENT AUTO 14.8 % (2.0-11.0)
[2023-10-16] MEDS ORDERED: HYDROmorphone 2 MG Tab PO PRN (08:17)
[2023-10-16] MEDS: Enoxaparin 40 MG/0.4 ML Syringe SUBCUT SCH (10:05)
[2023-10-16] MEDS: Levothyroxine 112 MCG Tab PO SCH (10:06)
[2023-10-16] MEDS: Simethicone 80 MG Tab.Chew PO SCH ×4 (10:06→21:45)
[2023-10-16] MEDS: Metoclopramide 10 MG Tab PO SCH ×2 (12:33→17:45)
[2023-10-17] MEDS: Pantoprazole 40 MG Vial IVPUSH SCH (06:40)
[2023-10-17] MEDS: Simethicone 80 MG Tab.Chew PO SCH ×2 (06:43→11:11)
[2023-10-17] MEDS: Metoclopramide 10 MG Tab PO SCH (06:43)
[2023-10-17] MEDS: Sucralfate 1 GM Tab PO SCH ×2 (06:44→11:11)
[2023-10-17 07:08] LABS: BASOPHILS PERCENT AUTO 0.3 % (0.2-1.2); EOSINOPHILS ABSOLUTE AUTO 0.1 x10^3/uL (0.0-0.5); EOSINOPHILS PERCENT AUTO 1.3 % (0.0-4.0); HEMATOCRIT 42.5 % (40.0-52.0); HEMOGLOBIN 14.6 g/dL (14.0-18.0); IMMATURE GRAN ABSOLUTE AUTO 0.04 x10^3/uL (0.00-0.07); LYMPHOCYTES ABSOLUTE AUTO 3.6 x10^3/uL (1.0-4.8); LYMPHOCYTES PERCENT AUTO 41.6 % (25.0-50.0); MEAN CORPUSCULAR HEMOGLOBIN 28.6 pg (26.0-32.0); MEAN CORPUSCULAR HGB CONC 34.4 g/dL (32.0-36.0); MEAN CORPUSCULAR VOLUME 83.3 fL (78.0-93.0); MONOCYTES ABSOLUTE AUTO 1.4 x10^3/uL (0.0-0.8); MONOCYTES PERCENT AUTO 16.2 % (2.0-11.0); NEUTROPHILS ABSOLUTE AUTO 3.5 x10^3/uL (1.8-7.7); NEUTROPHILS PERCENT AUTO 40.1 % (50.0-80.0); PLATELET COUNT,PLT 210 x10^3/uL (130-400); WHITE BLOOD CELL COUNT,WBC 8.7 x10^3/uL (4.0-10.0)
[2023-10-17 07:21] LABS: ANION GAP 11.2 mmol/L (5-15); CALCIUM 8.2 mg/dL (8.5-10.1); EST CRCL DRUG DOSING (CG) 83.27 mL/min; POTASSIUM,K 3.2 mmol/L (3.5-5.1)
[2023-10-17] MEDS ORDERED: Potassium Chloride 10 MEQ Tab.ER PO SCH (09:00)
[2023-10-17] MEDS: Levothyroxine 112 MCG Tab PO SCH (09:31)
[2023-10-17] MEDS: Enoxaparin 40 MG/0.4 ML Syringe SUBCUT SCH (09:31)
[2023-10-17] MEDS ORDERED: Metoclopramide 5 MG Tab PO SCH (11:00)
[2023-10-17 12:03] VITALS: BP 118/80; PULSE 61
== END 2023-10-17 11:30 | disposition home or self-care (01) | DRG 377 ==
LOC: VM.ED 09:30 → VM.MS 12:16 → UNDODISIN 10-17 11:30
PROVIDERS: ADMIT Internal Medicine; ATTEND Internal Medicine
DX: K29.71 Gastritis, unspecified, with bleeding (principal); K92.2 Gastrointestinal hemorrhage, unspecified; K52.9 Noninfective gastroenteritis and colitis, unspecified; U07.1 COVID-19; E23.0 Hypopituitarism; E44.1 Mild protein-calorie malnutrition; K56.7 Ileus, unspecified; K52.89 Other specified noninfective gastroenteritis and colitis; E03.9 Hypothyroidism, unspecified; G47.33 Obstructive sleep apnea (adult) (pediatric); I48.0 Paroxysmal atrial fibrillation; A08.4 Viral intestinal infection, unspecified; Z91.041 Radiographic dye allergy status; Z79.899 Other long term (current) drug therapy; Z98.890 Other specified postprocedural states; Z98.52 Vasectomy status; Z68.23 Body mass index [BMI] 23.0-23.9, adult; Z88.5 Allergy status to narcotic agent
CPT/HCPCS: 0241U; 36415; 71045; 74019; 74177; 80048; 80053; 81001; 83605; 83690; 83735; 84484; 85014; 85018; 85025; 85610; 85730; 93005; 93010; 97161-GP; 99284; A9270-GY; C9113; J1170; J1650; J1720; J2405; J2543; J2765; J3490; Q9967

== ENCOUNTER 2025-02-28 07:45 | Day surgery (SDC) | payer MEDICARE, BC ==
[2025-02-28] MEDS: Lactated Ringers 1,000 ML IV SCH (07:59)
[2025-02-28] MEDS ORDERED: fentaNYL 100 MCG/2 ML SDV ONE (08:33)
[2025-02-28] MEDS ORDERED: Propofol 200 MG/20 ML SDV ONE (08:33)
[2025-02-28 10:18] VITALS: BP 148/73; PULSE 50
== END 2025-02-28 10:44 | disposition home or self-care (01) ==
LOC: VM.SDS 07:45
PROVIDERS: ATTEND Student in an Organized Health Care Education/Training Program
DX: K29.50 Unspecified chronic gastritis without bleeding (principal); I48.0 Paroxysmal atrial fibrillation; Z88.5 Allergy status to narcotic agent; Z79.899 Other long term (current) drug therapy; Z79.890 Hormone replacement therapy
CPT/HCPCS: 00731; 88305; 99100; J2704; J3010; J7120

== ENCOUNTER 2025-09-04 09:45 | Day surgery (SDC) | payer MEDICARE, BC ==
[~2025-09-04 09:45] MED LIST changes: -Lactated Ringers 1,000 ML IV SCH; +Propofol 200 MG/20 ML SDV ONE; +fentaNYL 100 MCG/2 ML SDV ONE
[2025-09-04] MEDS: Lactated Ringers 1,000 ML IV SCH (10:08)
[2025-09-04] MEDS ORDERED: Glycopyrrolate 0.2 MG/ML 2 ML SDV ONE (12:13)
[2025-09-04 13:08] VITALS: BP 139/93; PULSE 71
== END 2025-09-04 13:25 | disposition home or self-care (01) ==
LOC: VM.SDS 09:45
PROVIDERS: ATTEND Family Medicine
DX: D12.2 Benign neoplasm of ascending colon (principal); K57.30 Diverticulosis of large intestine without perforation or abscess without bleeding; I48.91 Unspecified atrial fibrillation; Z88.5 Allergy status to narcotic agent; Z79.01 Long term (current) use of anticoagulants; Z79.899 Other long term (current) drug therapy; Z79.890 Hormone replacement therapy; Z86.0101 Personal history of adenomatous and serrated colon polyps
CPT/HCPCS: 00811; 45380; 99100; J1596; J2704; J3010; J7120; 88305